=== PATIENT | male | born 1980 | race Caucasian/White ===

== ENCOUNTER 2022-11-30 21:18 | Emergency (ER) | payer OTHER ==
[~2022-11-30] VITALS: Ht 182.9 cm; Wt 95.3 kg
--- NOTE | 2022-11-30 21:35 | NUR ---
Called patient in the waiting room, patient left without being seen.
--- NOTE | 2022-11-30 21:52 | NUR ---
seen and examined by Dr. Montenegro
--- NOTE | 2022-11-30 21:59 | NUR ---
labs in process
[2022-11-30 22:22] LABS: HEMATOCRIT 45.9 % (36.7-47.1); MEAN CORPUSCULAR HEMOGLOBIN 33.4 uug (23.8-33.4); MEAN CORPUSCULAR VOLUME 96.4 fL (73.0-96.2); PLATELET COUNT (AUTO) 222 K/uL (152-348)
[2022-11-30 22:25] LABS: CREATININE 1.1 mg/dL (0.6-1.3); POTASSIUM 3.9 mmol/L (3.5-5.1)
[2022-11-30 22:31] LABS: BILIRUBIN,TOTAL 0.3 mg/dL (0.2-1.0); TOTAL PROTEIN, SERUM 7.8 g/dL (6.4-8.2)
[2022-11-30 22:37] LABS: BAND % (MANUAL) 2 % (0-10); BASOPHILS % (MANUAL) 1 % (0-2); EOSINOPHILS % (MANUAL) 2 % (0-8); LYMPHOCYTES % (MANUAL) 30 % (20-40); MONOCYTES % (MANUAL) 12 % (2-10)
[2022-11-30 22:38] LABS: NEUTROPHILS % (MANUAL) 53 % (42-75)
--- NOTE | 2022-11-30 23:03 | NUR ---
Patient discharged to home in stable condition. Written and verbal after care instructions given. Patient verbalizes understanding of instructions. Stressed follow up or return to ER for worsening s/s.
[2022-11-30 23:04] VITALS: BP 112/80
== END 2022-11-30 23:06 | disposition home or self-care (01) ==
LOC: ER 21:18
DX: R21 Rash and other nonspecific skin eruption (principal); R23.8 Other skin changes; R20.2 Paresthesia of skin; F17.210 Nicotine dependence, cigarettes, uncomplicated
CPT/HCPCS: 36415; 70030-TC; 85025; 85610; 85730; A4663